=== PATIENT | male | born 1955 | race Caucasian/White ===

== ENCOUNTER 2020-11-23 11:37 | Inpatient (IN) | payer MEDICAID ==
[~2020-11-23] VITALS: Ht 170.2 cm; Wt 80.3 kg
[2020-11-23 11:50] VITALS: Ht 170.2 cm; Wt 80.3 kg
--- NOTE | 2020-11-23 11:54 | NUR ---
PT HERE ALERT AND ORIENTED FOR ETOH WITHRDRAWAL. PT USUALLY DRINKS APPROX 2 BOTTLES OF SCOTCH PER DAY AND HAS NOT HAD ANY DRINKS IN 2 DAYS. STARTED WITH DT'S YESTERDAY AND HAS GOTTEN PROGRESSIVELY WORSE. DISCHARGED FROM [facility] 2 DAYS AGO AND SENT HOME. PT HAS MODERATE SHAKING OF ENTIRE BODY AT THIS TIME. PT ARRIVES JAUNDICE IN COLOR AND HAS GENERALIZED BRUISING THROUGHOUT BODY. DENIES PAIN UPON ARRIVAL. AWAITING MD TILLEY
--- NOTE | 2020-11-23 12:26 | NUR ---
PT BACK FROM CT VIA SHARAD
--- NOTE | 2020-11-23 12:27 | NUR ---
PT UNABLE TO GIVE URINE AT THIS TIME AND ALFRED CACERES. WILL INITIATE ZHENG WHEN PT GETS TO BED 5
[2020-11-23 13:00] LABS: BASOPHIL % 1.4 % (0.2-1.5)
[2020-11-23 13:10] LABS: RED CELL DISTRIBUTION WIDTH 15.4 % (12.1-16.2)
[2020-11-23 13:12] LABS: CALCIUM 8.8 mg/dL (8.5-10.1); CARBON DIOXIDE 28.4 mmol/L (21-32); CHLORIDE SERUM 97 mmol/L (98-107); CREATININE SERUM 0.9 mg/dL (0.7-1.3); GFR1 > 60 mL/min; GLUCOSE SERUM 113 mg/dL (74-106); POTASSIUM SERUM 4.2 mmol/L (3.5-5.1); SODIUM SERUM 139 mmol/L (136-145)
[2020-11-23 13:13] LABS: PLATELET COUNT 44 x10^3mcL (152-348)
--- NOTE | 2020-11-23 13:13 | NUR ---
PT NO LONGER HAS MODERATE SHAKING BUT LIGHT SHAKING. DENIES PAIN AND ABLE TO ANSWER QUESTIONS BETTER WITHOUT STUTTERING AT THIS TIME.VSS
[2020-11-23 13:24] LABS: ALKALINE PHOSPHATASE 270 U/L (46-116); ALT/SGPT 228 U/L (16-63); AST/SGOT 606 U/L (15-37); BILIRUBIN TOTAL 2.97 mg/dL (0.20-1.00); CHOLESTEROL 171 mg/dL (<200); LIPASE 1238 IU/L (73-393); MAGNESIUM 1.7 mg/dL (1.8-2.4); TOTAL PROTEIN, SERUM 7.5 g/dL (6.4-8.2)
[2020-11-23 13:29] LABS: HDL CHOLESTEROL 18 mg/dL (40-60)
--- NOTE | 2020-11-23 13:30 | NUR ---
REPORT GIVEN TO ELEANOR AND PATIENT MOVED TO BED 5
[2020-11-23 14:43] LABS: rbc morphology (normal/abnorm) NORMAL (NORMAL)
--- NOTE | 2020-11-23 15:55 | NUR ---
MEDICAL STUDENT SPEAKING WITH PT AT THIS TIME. LESS JITTERY.
[2020-11-23 16:26] LABS: microscopic required? YES; urine erythrocyte TRACE (NEGATIVE)
[2020-11-23 16:29] LABS: PHOSPHOROUS 2.9 mg/dL (2.5-4.9)
[2020-11-23 16:30] LABS: CHOLESTEROL/HDL RATIO 9.8
--- NOTE | 2020-11-23 16:43 | NUR ---
REPORT CALLED TO [facility] ON 2ND FLOOR.
[2020-11-23 17:25] VITALS: BP 112/74
--- NOTE | 2020-11-23 17:45 | NUR ---
1700 RECEIVED PATIENT FROM ED FOR ETOH WITHRAWAL. TRANSFERRED FROMGURNEY TO BED INDEPENDENTLY BY SLIDING HIMSELF TOBED. BANANA BAG COMPLETED AND NS @ 200 ML/HR STARTED. IV ACCESS DRESSING CHANGED ANS SITE SECURED. ORIENTED TO UNIT, CALL LIGHT AND PLAN OF CARE. INFORMED HIM HE IS NOT ALLOWED TO EAT OR DRINK AT THIS TIME. ORDERED ATIVAN GIVEN, PATIENT STILL HAVING TREMORS. SKIN IS INTACT NO PRESSURE INJURY NOTED. WILL CONTINUE TO MONITOR.
--- NOTE | 2020-11-23 18:22 | NUR ---
SPOKE TO PATIENT , UPDATED ON PATIENT CONDITION. BED EXIT WENT OFF, PATIENT TRYING TO GET OUT OF BED, SHAKING. WANTS TO VOID, ASSISTED BACK TO BED AND URINAL PROVIDED. IV ACCESS WAS ACCIDENTALLY PULLED OUT BY PATIENT. WILL TRY TO PLACE ANOTHER.
[2020-11-23 20:00] VITALS: BP 126/76
--- NOTE | 2020-11-23 20:00 | NUR ---
RECIEVED PATIENT AWAKE IN BED. ALERT AND ORIENTED X3. PATIENT IS ANXIOUS AND HAVING TREMORS. VSS. AFEBRILE. RESPIRATIONS EVEN AND UNLABORED. NO SOB NOTED O2SAT 96% ON ROOM AIR. IVF INFUSING WITH NO REDNESS OR IRRITATION NOTED. DENIES PAIN AT THIS TIME. NO ACUTE DISTRESS NOTED. WILL CONTINUE TO MONITOR FOR SAFETY. Micha OTT RN.
[2020-11-24] VITALS (7 sets, daily range): BP systolic 97–123; BP diastolic 68–76
--- NOTE | 2020-11-24 06:07 | NUR ---
PATIENT REMAINS IN STABLE CONDITION. NO ACUTE DISTRESS NOTED. SLEPT WELL. Micha OTT RN.
[2020-11-24 08:07] LABS: ALKALINE PHOSPHATASE 202 U/L (46-116); ALT/SGPT 178 U/L (16-63); AST/SGOT 446 U/L (15-37); BILIRUBIN TOTAL 3.5 mg/dL (0.20-1.00); CALCIUM 7.2 mg/dL (8.5-10.1); CARBON DIOXIDE 25.8 mmol/L (21-32); CHLORIDE SERUM 100 mmol/L (98-107); CREATININE SERUM 0.8 mg/dL (0.7-1.3); GFR1 > 60 mL/min; GLUCOSE SERUM 100 mg/dL (74-106); LIPASE 822 IU/L (73-393); MAGNESIUM 2.1 mg/dL (1.8-2.4); PHOSPHOROUS 1.9 mg/dL (2.5-4.9); POTASSIUM SERUM 3.5 mmol/L (3.5-5.1); SODIUM SERUM 137 mmol/L (136-145); TOTAL PROTEIN, SERUM 6.4 g/dL (6.4-8.2)
[2020-11-24 08:26] LABS: ALBUMIN 2.5 g/dL (3.4-5.0)
--- NOTE | 2020-11-24 09:57 | NUR ---
PATENT ALERT AND ORIENTED X2. ABLE TO MAKE NEEDS KNOWN. ON ROOM AIR. DISTENDED ABDOMEN NOTED. IVF ONGOING TO LEFT HAND. PATIENT DENIES PAIN, NO SWELLING NOTED. URINAL AND BEDSIDE COMMODE AT BEDSIDE. CALL LIGHT WITHIN EASY REACH. CBED IN LOWEST POSITION.
[2020-11-24 10:35] LABS: BASOPHIL % 3.1 % (0.2-1.5); RED CELL DISTRIBUTION WIDTH 15.1 % (12.1-16.2)
[2020-11-24 10:43] LABS: rbc morphology (normal/abnorm) ABNORMAL (NORMAL)
[2020-11-24 10:44] LABS: PLATELET COUNT 35 x10^3mcL (152-348)
--- NOTE | 2020-11-24 13:57 | NUR ---
Discount pharmacy card and list to low cost medical clinics given to patient.
--- NOTE | 2020-11-24 14:05 | NUR ---
PATIENT HAD BOWEL INCONTINENCE, REDIRECTED AND ORIENTED TO USE BEDSIDE COMMODE. KEPT CLEAN AND DRY. GIVEN UPDATE. IV ONGOING ORDERED. PLATELETES OF 35,[address] HARDY. AWAITING LABORATORY TO COMPLETE TYPE AND SCREEN AND FOR BLOOD BANK TO CALL FOR PLATELETS
--- NOTE | 2020-11-24 14:31 | NUR ---
LAB CALLED THAT PLATELET IS UNAVAILABLE AT THIS ITME, BUT WILL CALL WHEN IT IS READY
--- NOTE | 2020-11-24 17:28 | NUR ---
CALLED AND PAGED DR ANTONY CORDOVA TO SIGN CONSENT FOR PLATELET TRANSFUSION FOR PATIENT WITH PLATELET LEVEL OF 35,000. LEFT A CALL BACK NUMBER TO PAGER [phone], AWAITING CALL BACK. CHARGE NURSE MADE AWARE.
--- NOTE | 2020-11-24 18:25 | NUR ---
NO CALL BACK FROM DR ANTONY CORDOVA FOR CONSENT TO BE SIGNED FOR PLATELET TRANSFUSION. CHARGE NURSE MADE AWARE.
--- NOTE | 2020-11-24 19:25 | NUR ---
RECEIVED PT FROM AM NURSE. PRESENTING A/O X3, TREMORS, ANXIETY, MILD AGITATION. NO ACUTE RESP DISTRESS NOTED, BREATHING EVEN AND UNLABORED. DENIES ANY CP/PRESSURE AT THIS TIME, HS WNL, SR ON TELE #14. BS+. VOIDS FREELY. UNSTEADY GAIT. JAUNDICE NOTED TO BILAT SCLERA. IV TO LH 22G WNL. ALL SAFETY PRECAUTIONS IN PLACE. WILL CONT TO MONITOR.
[2020-11-25 00:52] VITALS: BP 120/74
--- NOTE | 2020-11-25 00:52 | NUR ---
COMPLETED PLATELET TRANSFUSION. VS STABLE, AFEBRILE, NO SIGNS OF ADVERSE REACTION. WILL CONT TO MONITOR.
--- NOTE | 2020-11-25 02:49 | NUR ---
PT PULLED OUT IV TO LH. IV INTACT. NEW IV PLACED IN L FOREARM, FLUSHES WELL, WNL.
--- NOTE | 2020-11-25 03:50 | NUR ---
PT TRYING TO GET OUT OF BED REPEATEDLY, PICKING AT IV. ATIVAN GIVEN PER EMAR. WILL CONT TO MONITOR.
[2020-11-25 06:20] VITALS: BP 121/69
--- NOTE | 2020-11-25 06:35 | NUR ---
PT RESTING IN BED. CONFUSED, TRIES TO GET OUT OF BED PERIODICALLY, TREMORS NOTED. NO ACUTE RESP DISTRESS NOTED, BREATHING EVEN AND UNLABORED. NO CP/PRESSURE AT THIS TIME, SR ON MONITOR. ALL SAFETY PRECAUTIONS IN PLACE. ALL NEEDS ATTENDED TO OVERNIGHT. WILL ENDORSE ALL CARE TO ONCOMING NURSE.
[2020-11-25 07:40] LABS: BASOPHIL % 2.3 % (0.2-1.5); PLATELET COUNT 78 x10^3mcL (152-348); RED CELL DISTRIBUTION WIDTH 15.5 % (12.1-16.2)
[2020-11-25 07:43] LABS: rbc morphology (normal/abnorm) NORMAL (NORMAL)
--- NOTE | 2020-11-25 07:44 | NUR ---
PT SEEN SITTING AT EDGE OF BED TRYING TO GET UP. GENERALIZED WEAKNESS AND BODY TREMORS NOTED. APPEARED RESTLESS/CONFUSED, STATED HE NEEDED TO GO TO HIS SONS HOUSE. REORIENTED PT TO CURRENT SITUATION AND THAT HE WAS IN THE HOSPITAL. ASSISTED PT BACK TO BED, AOX3, CALM AT THIS TIME. RESP E/U ON RA. ON TELE 14 SHOWING SR, HR: 75. IV TO LFA W/ NO SIGNS OF INFILTRATION, IVF INFUSING WELL. BED IN LOWEST POSITION AND CALL LIGHT WITHIN REACH. WILL CONTINUE TO MONITOR.
[2020-11-25 07:53] LABS: ALKALINE PHOSPHATASE 172 U/L (46-116); ALT/SGPT 160 U/L (16-63); AST/SGOT 336 U/L (15-37); BILIRUBIN TOTAL 4.6 mg/dL (0.20-1.00); CALCIUM 7.3 mg/dL (8.5-10.1); CARBON DIOXIDE 25.9 mmol/L (21-32); CHLORIDE SERUM 101 mmol/L (98-107); CREATININE SERUM 0.8 mg/dL (0.7-1.3); GFR1 > 60 mL/min; GLUCOSE SERUM 96 mg/dL (74-106); POTASSIUM SERUM 3.5 mmol/L (3.5-5.1); SODIUM SERUM 137 mmol/L (136-145); TOTAL PROTEIN, SERUM 6.7 g/dL (6.4-8.2)
[2020-11-25 07:54] LABS: ALBUMIN 2.6 g/dL (3.4-5.0)
[2020-11-25 08:04] LABS: MAGNESIUM 1.8 mg/dL (1.8-2.4); PHOSPHOROUS 1.7 mg/dL (2.5-4.9)
[2020-11-25 08:51] VITALS: BP 102/60
--- NOTE | 2020-11-25 09:00 | NUR ---
PT SEEN ATTEMPTING TO GET OUT OF BED. BALANCE UNSTEADY. NOTED THAT PT REMOVED TELE MONITOR. ANXIOUS AND AGITATED AT THIS TIME. STATED HE DID NOT WANT TO BE "CONTROLLED" AND WANTED TO LEAVE. REORIENTED PT TO SITUATION AND PLAN OF CARE, INFORMED PT TO WAIT FOR DOCTOR FOR UPDATES. ASSISTED BACK TO BED, SIDE RAILS UP X3. ATTEMPTED TO PLACE TELE BACK ON BUT PT REFUSED. PRN ATIVAN ADMINISTERED. COMPLIANT W/ SCHEDULED MED ADMINISTRATION. APPEARED CALM SHORTLY AFTER. WILL F/U W/ PT.
--- NOTE | 2020-11-25 13:00 | NUR ---
PT RESTING IN BED, AOX3, RESP E/U ON RA. CALM AT THIS TIME, NO ACUTE DISTRESS NOTED. WILL CONTINUE TO MONITOR.
[2020-11-25 14:42] VITALS: BP 125/79
--- NOTE | 2020-11-25 17:48 | NUR ---
PT SEEN AT EDGE OF BED ATTEMPTING TO GET UP. TREMORS NOTED, BALANCE UNSTEADY. PT STATED HE NEEDED TO USE RESTROOM. ASSISTED PT BACK TO BED, BED SEGURA PROVIDED, INCONTINENCE CARE DONE AFTERWARDS. INFORMED PT HE IS TOO UNSTEADY TO WALK TO RESTROOM AND TO CALL FOR ASSISTANCE FOR BEDPAN/URINAL SET UP. PT GESTURED UNDERSTANDING OF INSTRUCTIONS, POOR CONCENTRATION, WILL REINFORCE INSTRUCTIONS NEEDED. CALM AT THIS TIME. WILL CONTINUE TO MONITOR.
[2020-11-25 18:41] VITALS: BP 95/67
--- NOTE | 2020-11-25 20:00 | NUR ---
IN BED AWAKE EATING DINNER. DENIES PAIN. FLUIDS INFUSING. CALL LO IN REACH, BED LOW, SR UP *2. WILL CONTINUE MONITORING
[2020-11-25 20:34] VITALS: BP 103/64
[2020-11-26 05:00] VITALS: BP 102/64
--- NOTE | 2020-11-26 06:31 | NUR ---
AWAKE IN BED. ICNCONTINENT *2. BED BATH GIVEN LINENS CHANGED. LOOSE BM. SAFETY MANTAINED. CALL LO IN REACH. WILL MONITOR
[2020-11-26 06:35] VITALS: BP 96/63
[2020-11-26 06:37] LABS: CALCIUM 6.9 mg/dL (8.5-10.1); CARBON DIOXIDE 24.4 mmol/L (21-32); CHLORIDE SERUM 103 mmol/L (98-107); CREATININE SERUM 0.8 mg/dL (0.7-1.3); GFR1 > 60 mL/min; GLUCOSE SERUM 158 mg/dL (74-106); LIPASE 622 IU/L (73-393); MAGNESIUM 1.5 mg/dL (1.8-2.4); PHOSPHOROUS 1.6 mg/dL (2.5-4.9); SODIUM SERUM 138 mmol/L (136-145)
--- NOTE | 2020-11-26 06:39 | NUR ---
PATIENT INFORMATION MADE CONFIDENTIAL BY ADMITTING DEPT PER 'S REQUEST
[2020-11-26 08:22] LABS: BASOPHIL % 2.5 % (0.2-1.5); PLATELET COUNT 83 x10^3mcL (152-348); RED CELL DISTRIBUTION WIDTH 15.8 % (12.1-16.2)
[2020-11-26 09:30] VITALS: BP 108/71
[2020-11-26 11:38] LABS: BILIRUBIN DIRECT 3.47 mg/dL (0.0-0.2); BILIRUBIN TOTAL 4.24 mg/dL (0.20-1.00)
[2020-11-26 11:42] LABS: ALBUMIN 2.4 g/dL (3.4-5.0); TOTAL PROTEIN, SERUM 6.1 g/dL (6.4-8.2)
[2020-11-26 12:08] VITALS: BP 110/70
[2020-11-26 17:07] VITALS: BP 110/74
--- NOTE | 2020-11-26 19:45 | NUR ---
RECEIVED REPORT FROM AM NURSE. PT IS A&OX3, CONFUSED. PT IS ON TELE #14, NSR. PT IS ON ROOM AIR, SPO2 100%, BREATHING IS EVEN AND UNLABORED. PT HAS AN IV IN LFA, RUNNING D5 NS AT 200 ML/HR. PT IS NOT IN ACUTE DISTRESS AT THIS TIME. CALL LIGHT IS WITHIN REACH. WILL CONTINUE TO MONITOR.
[2020-11-26 21:05] VITALS: BP 121/76
--- NOTE | 2020-11-26 22:30 | NUR ---
TALKED TO SPOUSE ON THE PHONE, SPOUSE SAID "MY CALLED ME AND HE SAID HIS FRIEND VISITED HIM JUST NOW"
--- NOTE | 2020-11-27 01:51 | NUR ---
PT IS RESTING IN BED. PT IS NOT IN ACUTE DISTRESS AT THIS TIME. PT DENIES SOB, DENIES N/V, DENIES CHEST PAIN. PT HAS NO C/O PAIN OR DISCOMFORT. CALL LIGHT IS WITHIN REACH. WILL CONTINUE TO MONITOR.
[2020-11-27 05:44] VITALS: BP 117/73
--- NOTE | 2020-11-27 05:53 | NUR ---
PT IS RESTING IN BED WITH EYES CLOSED BUT IS EASILY AROUSABLE. PT IS NOT IN ACUTE DISTRESS AT THIS TIME. PT DOES NOT HAVE C/O PAIN OR DISCOMFORT. CALL LIGHT IS WITHIN REACH. WILL ENDORSE CARE TO AM NURSE.
[2020-11-27 07:29] LABS: BASOPHIL % 1.8 % (0.2-1.5)
[2020-11-27 08:16] LABS: CALCIUM 6.8 mg/dL (8.5-10.1); CARBON DIOXIDE 25.7 mmol/L (21-32); CHLORIDE SERUM 104 mmol/L (98-107); CREATININE SERUM 0.7 mg/dL (0.7-1.3); GFR1 > 60 mL/min; GLUCOSE SERUM 162 mg/dL (74-106); MAGNESIUM 1.4 mg/dL (1.8-2.4); PHOSPHOROUS 1.4 mg/dL (2.5-4.9); SODIUM SERUM 138 mmol/L (136-145)
[2020-11-27 08:45] LABS: PLATELET COUNT 89 x10^3mcL (152-348); RED CELL DISTRIBUTION WIDTH 15.8 % (12.1-16.2)
[2020-11-27 08:52] VITALS: BP 106/73
--- NOTE | 2020-11-27 09:00 | NUR ---
PT ATE BREAKFAST, NEEDS ENCOURAGEMENT TO INCREASE PO INTAKE. PT ABLE TO TOLERATE CLEAR LIQUIDS. ASPIRATION PRECAUTIONS OBSERVED.
[2020-11-27 09:08] LABS: rbc morphology (normal/abnorm) NORMAL (NORMAL)
--- NOTE | 2020-11-27 11:29 | NUR ---
SPOKEWITH RE: LOW K-LEVEL TODAY. PER MD WILL PLACED ORDER IN.
[2020-11-27 12:27] VITALS: BP 122/77
--- NOTE | 2020-11-27 14:58 | NUR ---
PT SLEEPING AT THIS TIME. PT TOLERATED FULL LIQUID DIET FOR LUNCH. UPDATED PT AND HIS OVER THE PHONE WITH PLAN OF CARE THIS AM. WILL CONT TO MONITOR
[2020-11-27 16:56] VITALS: BP 130/87
--- NOTE | 2020-11-27 19:50 | NUR ---
RECEIVED REPORT FROM AM NURSE. PT IS A&OX3. PT IS ON TELE #14, NSR. PT IS ON ROOM AIR, BREATHING IS EQUAL AND UNLABORED, SPO2 99%. PT HAS TREMORS IN HIS UPPER EXTREMITIES. IV IS IN THE LFA, RUNNING D5 NS AT 200 ML/HR. IV SITE HAS NO SIGNS OF INFECTION, NO SIGNS OF INFILTRATION. CALL LIGHT IS PLACED WITHIN REACH. WILL CONTINUE TO MONITOR.
[2020-11-27 21:05] VITALS: BP 126/71
--- NOTE | 2020-11-28 00:31 | NUR ---
PT VERBALIZED HE WANTED TO GO HOME. RISKS WERE EXPLAINED TO THE PATIENT X3. PT VERBALIZED HE HAS BUSINESS TO DO AT HOME. DR LIU WAS NOTIFIED.
--- NOTE | 2020-11-28 01:08 | NUR ---
DR LIU TALKED TO THE PATIENT. PT VERBALIZED HE WANTS TO GO HOME. DR AND PT SIGNED AMA FORM. PT'S SPOUSE WAS NOTIFIED. SPOUSE SAID SHE IS COMING TO PICK PT UP.
--- NOTE | 2020-11-28 01:45 | NUR ---
PT WAS FOUND ON THE FLOOR UPON NURSE ENTERED THE ROOM. DR MICHAEL WAS NOTIFIED. DR MICHAEL ASSESSED THE PT. PT STATED HE DID NOT HAVE ANY PAIN. IV WAS DCED. PT WAS BROUGHT DOWN TO THE LOBBY VIA WHEELCHAIR. PT GOT IN THE SPOUSE'S VAN.
--- NOTE | 2020-11-28 01:53 | NUR ---
AFTER PTS FALL, THIS RN ASSISTED PTS PRIMARY RN BY CALLING SPOUSE DEEPTHI. RN INFORMED MRS. LACEY THAT PT HAD AN UNWITNESSED FALL, HEARD BY PRIMARY RN, DISCOVERED NEXT TO BED SITTING ON BUTTOCKS. DENIED HITTING HEAD. AT [facility] MENTATION AAX4. VITALS BEING CHECKED CURRENTLY AND MD TEAM WAS JUST INFORMED. CURRENTLY ON THEIR WAY TO COME ASSESS PT IN PERSON. INFORMED THAT DR. LIU, PTS PRIMARY RN LOLA, LEAD [employer] HAD ALREADY SPOKEN TO PT ATTEMPTING TO PERSUADE PT TO STAY AT LEAST OVERNIGHT, AND NOT LEAVE AMA. PT STILL INSISTENT ON GOING HOME DESPITE RISKS/POSSIBLE CONSEQUENCES, AND BENEFITS OF CONTINUED MEDICAL CARE BEING EXPLAINED. PER MRS. LACEY, SHE WAS ALSO WORRIED ABOUT TAKING PT HOME. SHE DOES CONFIRM THAT THERE ARE 3 MALE RELATIVES AT HOME THAT ARE ABLE TO HELP PHYSICALLY MOVE/HELP PT. PT VERBALIZES THE SAME. ASKED "CAN'T YOU GUYS JUST FORCE HIM TO STAY? I DON'T WANT HIM TO FEEL LIKE I DON'T CARE, LIKE I'M THE ONE THAT DOESN'T WANT TO TAKE HIM HOME". RN EXPLAINED THAT PT IS AAX4, ABLE TO MAKE HIS OWN DECISIONS, STAFF CANNOT FORCE HIM TO STAY AGAINST HIS WILL, PARTICULARLY WHEN FAMILY IS TAKING RESPONSIBILITY FOR TAKING HIM HOME. RN TO CALL BACK AFTER MD ASSESSMENT OF PT. 10 MINS LATER, AFTER PT WAS SEEN BY DR. MICHAEL, WHO STATED PT COULD STILL LEAVE AMA, RN CALLED MRS. LACEY BACK TO INFORM. CONFIRMS SHE WILL TAKE PT HOME. RN INFORMED THAT IF THERE WERE ANY ISSUES ONCE HOME, OK TO CALL 911 ,OR BRING PT BACK TO ED. VERBALIZED UNDERSTANDING. INFORMED RN/WALLPAPER HANGER WOULD BE BRINGING PT DOWN TO ED LOBBY FOR D/C.
[2020-11-29 17:05] LABS: VITAMIN B1 (THIAMINE) 102.2 nmol/L (66.5-200.0)
== END 2020-11-28 01:58 | disposition left against medical advice (07) | DRG 279 ==
LOC: ED 11:37 → DU 14:52
PROVIDERS: Emergency Medicine; ADMIT Internal Medicine; ATTEND Internal Medicine
PROC: 30233R1 Transfusion of Nonautologous Platelets into Peripheral Vein, Percutaneous Approach (ICD-10-PCS; principal; 2020-11-23)
DX: K72.90 Hepatic failure, unspecified without coma (principal); R65.11 Systemic inflammatory response syndrome (SIRS) of non-infectious origin with acute organ dysfunction; D61.818 Other pancytopenia; K85.20 Alcohol induced acute pancreatitis without necrosis or infection; D68.9 Coagulation defect, unspecified; E44.1 Mild protein-calorie malnutrition; Z20.822 Contact with and (suspected) exposure to COVID-19; D64.9 Anemia, unspecified; E05.90 Thyrotoxicosis, unspecified without thyrotoxic crisis or storm; Z79.899 Other long term (current) drug therapy; Z79.891 Long term (current) use of opiate analgesic; Z79.01 Long term (current) use of anticoagulants; Z68.1 Body mass index [BMI] 19.9 or less, adult; D75.89 Other specified diseases of blood and blood-forming organs
CPT/HCPCS: 82962; 83880; 84425; 84439; 97110-GP; 97116-GP; 97530-GP; G0378; G0480; J2060; J3411; J3480; J7030; J7042; J7050; P9035; Q0163; U0003

== ENCOUNTER 2021-01-08 18:20 | Inpatient (IN) | payer BC ==
[~2021-01-08] VITALS: Ht 172.7 cm; Wt 79.8 kg
[2021-01-08 18:41] VITALS: Ht 172.7 cm; Wt 79.8 kg
[2021-01-08 19:22] LABS: PLATELET COUNT 65 x10^3mcL (152-348); RED CELL DISTRIBUTION WIDTH 16.3 % (12.1-16.2)
[2021-01-08 19:41] LABS: BILIRUBIN TOTAL 4.8 mg/dL (0.20-1.00); CALCIUM 7.1 mg/dL (8.5-10.1); POTASSIUM SERUM 3.6 mmol/L (3.5-5.1); TOTAL PROTEIN, SERUM 6.4 g/dL (6.4-8.2)
[2021-01-08 19:44] LABS: ALBUMIN 2.2 g/dL (3.4-5.0)
[2021-01-08 19:47] LABS: CARBON DIOXIDE 9.5 mmol/L (21-32); CREATININE SERUM 4.1 mg/dL (0.7-1.3)
[2021-01-08 19:57] LABS: BAND NEUTROPHIL 0 % (0-10); MONOCYTE 6 % (0-7); SEGMENTED NEUTROPHILS 34 % (37-75)
[2021-01-08 19:58] LABS: rbc morphology (normal/abnorm) ABNORMAL (NORMAL)
[2021-01-09] VITALS (9 sets, daily range): BP systolic 59–110; BP diastolic 27–43
[2021-01-09 01:32] LABS: UA SPECIFIC GRAVITY 1.025 (1.005-1.035); microscopic required? YES; urine erythrocyte 2+ (NEGATIVE)
[2021-01-09 06:26] LABS: RED CELL DISTRIBUTION WIDTH 16.3 % (12.1-16.2)
[2021-01-09 06:27] LABS: CALCIUM 6.4 mg/dL (8.5-10.1); CARBON DIOXIDE 13.6 mmol/L (21-32); PHOSPHOROUS 4.4 mg/dL (2.5-4.9); POTASSIUM SERUM 3.3 mmol/L (3.5-5.1)
[2021-01-09 06:29] LABS: CREATININE SERUM 4.3 mg/dL (0.7-1.3)
[2021-01-09 06:32] LABS: PLATELET COUNT 44 x10^3mcL (152-348)
[2021-01-09 08:20] LABS: MONOCYTE 2 % (0-7); SEGMENTED NEUTROPHILS 60 % (37-75); rbc morphology (normal/abnorm) ABNORMAL (NORMAL)
[2021-01-09 08:21] LABS: PLATELET MORPHOLOGY PLATELETS DECREASED
[2021-01-09 15:17] LABS: AMPHETAMINE QUAL UR NONE DETECTED (See below)
== END 2021-01-09 16:25 | DRG 871 ==
LOC: ED 18:20 → DU 21:50 → IC 21:50 → EDBEDREQ 22:29 → DU 23:38 → IC 01-09 01:19
PROVIDERS: Emergency Medicine; ADMIT Family Medicine; ATTEND Family Medicine
PROC: 5A1935Z Respiratory Ventilation, Less than 24 Consecutive Hours (ICD-10-PCS; principal; 2021-01-09)
PROC: 0BH17EZ Insertion of Endotracheal Airway into Trachea, Via Natural or Artificial Opening (ICD-10-PCS; 2021-01-09)
DX: A41.9 Sepsis, unspecified organism (principal); R65.21 Severe sepsis with septic shock; J18.1 Lobar pneumonia, unspecified organism; K76.7 Hepatorenal syndrome; N17.0 Acute kidney failure with tubular necrosis; G93.41 Metabolic encephalopathy; J96.00 Acute respiratory failure, unspecified whether with hypoxia or hypercapnia; I85.01 Esophageal varices with bleeding; D61.818 Other pancytopenia; B17.9 Acute viral hepatitis, unspecified; K72.90 Hepatic failure, unspecified without coma; E83.51 Hypocalcemia; R57.8 Other shock; N18.9 Chronic kidney disease, unspecified; F10.10 Alcohol abuse, uncomplicated; Y90.9 Presence of alcohol in blood, level not specified; E03.9 Hypothyroidism, unspecified; I46.9 Cardiac arrest, cause unspecified
CPT/HCPCS: 31500; 36600; 82962; 83880; C9113; G0378; G0480; J0171; J0456; J0610; J0696; J1200; J1610; J1720; J2250; J2270; J2310; J2354; J2370; J2405; J2543; J2704; J3010; J3370; J3411; J3475; J3490; J7030; J7040; J7042; J7050; J7060; P9047; U0003